=== PATIENT | male | born 1935 | race Two or more races ===

== ENCOUNTER 2018-02-26 11:31 | Outpatient (CLI) | payer OTHER ==
[~2018-02-26 11:31] MED LIST: ORPH100T PO; TRAM1TAB98 PO
== END 2018-02-26 12:16 | disposition home or self-care (01) ==
LOC: RAD 11:31
DX: I25.10 Atherosclerotic heart disease of native coronary artery without angina pectoris (principal); I11.9 Hypertensive heart disease without heart failure

== ENCOUNTER 2018-12-26 08:49 | Outpatient (CLI) | payer OTHER | END 2018-12-26 11:09 | disposition home or self-care (01) | LOC: TOM 08:49 | DX: I73.89 Other specified peripheral vascular diseases (principal); R41.82 Altered mental status, unspecified | CPT/HCPCS: 70450; 70498; Q9965 ==

== ENCOUNTER 2019-04-23 09:45 | Emergency (ER) | payer OTHER ==
[~2019-04-23] VITALS: Ht 162.6 cm; Wt 60.3 kg
[2019-04-23] MEDS ORDERED: CYMBALTA60 MG PO (10:03)
[2019-04-23] MEDS ORDERED: CRESTOR20 MG PO (10:03)
[2019-04-23] MEDS ORDERED: ECOTRIN81 MG PO (10:03)
[2019-04-23] MEDS ORDERED: FOLIC ACID1 MG PO (10:03)
[2019-04-23] MEDS ORDERED: UROXATRAL10 MG PO (10:04)
[2019-04-23] MEDS ORDERED: NABUMETONE750 MG PO (10:04)
[2019-04-23] MEDS ORDERED: ZETIA10 MG PO (10:04)
[2019-04-23] MEDS ORDERED: TAMS0.4C PO (10:05)
== END 2019-04-23 11:13 | disposition home or self-care (01) ==
LOC: ER 09:45
DX: G89.29 Other chronic pain (principal); M25.561 Pain in right knee

== ENCOUNTER 2019-04-23 14:12 | Outpatient (CLI) | payer OTHER ==
[~2019-04-23 14:12] MED LIST changes: +CRESTOR20 MG PO; +CYMBALTA60 MG PO; +ECOTRIN81 MG PO; +FOLIC ACID1 MG PO; +NABUMETONE750 MG PO; +TAMS0.4C PO; +UROXATRAL10 MG PO; +ZETIA10 MG PO
== END 2019-04-23 14:28 | disposition home or self-care (01) ==
LOC: RAD 14:12
DX: M25.551 Pain in right hip (principal); M25.552 Pain in left hip

== ENCOUNTER 2019-04-27 12:46 | Outpatient (CLI) | payer OTHER | END 2019-04-27 12:49 | disposition home or self-care (01) | LOC: NUCLEAR 12:46 | DX: M81.0 Age-related osteoporosis without current pathological fracture (principal) ==

== ENCOUNTER 2019-07-31 08:13 | Outpatient (CLI) | payer OTHER | END 2019-07-31 08:21 | disposition home or self-care (01) | LOC: LAB 08:13 | DX: E56.1 Deficiency of vitamin K (principal) ==

== ENCOUNTER → 2019-08-11 | Outpatient (CLI) | payer OTHER | END | disposition home or self-care (01) | LOC: RAD 10:20 | DX: M25.511 Pain in right shoulder (principal) ==

== ENCOUNTER 2020-02-02 13:34 | Outpatient (CLI) | payer OTHER | END 2020-02-02 13:39 | disposition home or self-care (01) | LOC: RAD 13:34 | PROVIDERS: ATTEND Internal Medicine Pulmonary Disease | DX: R06.02 Shortness of breath (principal); J84.89 Other specified interstitial pulmonary diseases ==

== ENCOUNTER → 2020-07-14 | Outpatient (CLI) | payer OTHER | END | disposition home or self-care (01) | LOC: TOM 10:15 | PROVIDERS: ATTEND Internal Medicine Pulmonary Disease | DX: K80.80 Other cholelithiasis without obstruction (principal); I70.8 Atherosclerosis of other arteries; R05 Cough; J84.112 Idiopathic pulmonary fibrosis ==

== ENCOUNTER 2021-04-07 13:11 | Outpatient (CLI) | payer OTHER | END 2021-04-07 13:20 | disposition home or self-care (01) | LOC: RAD 13:11 | DX: I10 Essential (primary) hypertension (principal); R07.89 Other chest pain ==

== ENCOUNTER 2021-12-11 13:38 | Emergency (ER) | payer OTHER ==
[~2021-12-11] VITALS: Ht 162.6 cm; Wt 59.9 kg
== END 2021-12-11 20:44 | disposition home or self-care (01) ==
LOC: ER 13:38
DX: S00.83XA Contusion of other part of head, initial encounter (principal); W18.30XA Fall on same level, unspecified, initial encounter; Y93.9 Activity, unspecified; Y92.89 Other specified places as the place of occurrence of the external cause; Y99.9 Unspecified external cause status; I10 Essential (primary) hypertension

== ENCOUNTER 2022-01-16 12:27 | Outpatient (CLI) | payer OTHER | END 2022-01-16 12:29 | disposition home or self-care (01) | LOC: TOM 12:27 | PROVIDERS: ATTEND Internal Medicine Pulmonary Disease | DX: J84.112 Idiopathic pulmonary fibrosis (principal); R05.9 Cough, unspecified; R06.02 Shortness of breath ==

== ENCOUNTER 2022-01-18 13:10 | Outpatient (CLI) | payer OTHER | END 2022-01-18 13:30 | disposition home or self-care (01) | LOC: PPH VACUNA 13:10 | PROVIDERS: ATTEND Emergency Medicine Pediatric Emergency Medicine | DX: Z23 Encounter for immunization (principal) ==